=== PATIENT | female | born 1960 | race Caucasian/White ===

== ENCOUNTER 2017-08-09 06:04 | Day surgery (SDC) | payer SELFPAY ==
[2017-08-05 12:40] VITALS: BMI 25.0
[2017-08-09] MEDS ORDERED: GENTAMICIN SO4 80 MG/2 ML VIAL ONE (07:14)
[2017-08-09] MEDS ORDERED: BUPIVACAINE HCL/PF 2.5 MG/ML - 30 ML VIAL IJ ONE (07:14)
[2017-08-09] MEDS ORDERED: LIDOCAINE HCL 1%, 10 MG/ML (20ML VIAL) ONE (07:14)
[2017-08-09] MEDS ORDERED: ceFAZolin SODIUM 1 GM VIAL ONE ×3 (07:14→12:59)
[2017-08-09] MEDS ORDERED: LIDOCAINE 1%/EPI 1:100000 (20 ML MULTI DOSE VIAL) ONE (07:15)
[2017-08-09] MEDS ORDERED: EPINEPHrine/PF 1 MG/1 ML (1:1,000) AMPULE ONE (07:15)
[2017-08-09] MEDS ORDERED: MIDAZOLAM HCL 2 MG/2 ML SINGLE DOSE VIAL ONE (07:53)
[2017-08-09] MEDS ORDERED: SCOPOLAMINE HYDROBROMIDE 1 PATCH PATCH.TD72 ONE (08:36)
[2017-08-09] MEDS ORDERED: PROPOFOL 20 ML ONE ×2 (08:43)
[2017-08-09] MEDS ORDERED: HEPARIN NA (PORCINE) 5,000 UNITS/ML 1ML VIAL ONE (08:43)
[2017-08-09] MEDS ORDERED: ROCURONIUM BROMIDE 50 MG/5 ML VIAL ONE (08:43)
[2017-08-09] MEDS ORDERED: SUCCINYLCHOLINE CHLORIDE 200 MG/10 ML VIAL ONE ×2 (08:43)
[2017-08-09] MEDS ORDERED: HEPARIN NA (PORCINE) 5,000 UNITS/ML 1ML VIAL SQ ONE (08:55)
[2017-08-09] MEDS ORDERED: ONDANSETRON 4 MG/2 ML VIAL ONE ×2 (08:56→14:53)
[2017-08-09] MEDS ORDERED: HYDROmorphone HCL/PF 1 MG/ML VIAL (FOR PYXIS CHARGING ONLY) ONE ×2 (09:02→13:59)
[2017-08-09] MEDS ORDERED: LIDOCAINE 1%/EPI 1:100000 (50 ML MULTI DOSE VIAL) INF ONE ×2 (09:24)
[2017-08-09] MEDS ORDERED: DESFLURANE GAS 240 ML BOTTLE IH ONE (13:33)
[2017-08-09] MEDS ORDERED: DEXAMETHASONE SOD PHOSPHATE 4 MG/1 ML VIAL ONE (14:53)
[2017-08-09] MEDS ORDERED: ONDANSETRON 4 MG/2 ML VIAL IVPUSH PRN ×3 (15:11→17:16)
[2017-08-09] MEDS ORDERED: oxyCODONE HCL 5 MG TABLET PO PRN ×5 (15:11→17:28)
[2017-08-09] MEDS ORDERED: LACTATED RINGERS SOLUTION 1,000 ML IV SCH ×3 (15:15→17:30)
[2017-08-09] MEDS ORDERED: BUPIVACAINE HCL/PF 0.25% (2.5MG/ML) 10 ML VIAL IJ ONE ×2 (15:45)
[2017-08-09] MEDS ORDERED: PROMETHAZINE HCL 25 MG/1 ML VIAL IVPUSH PRN (16:21)
[2017-08-09] MEDS ORDERED: ZOLPIDEM TARTRATE 5 MG TABLET PO PRN (17:16)
[2017-08-09] MEDS ORDERED: ACETAMINOPHEN 325 MG TABLET (FP) PO PRN (17:16)
[2017-08-09] MEDS ORDERED: HYDROmorphone HCL CARPU-JECT 2 MG/1 ML DISP.SYRIN IVPB PRN (17:25)
[2017-08-09 17:43] VITALS: TEMP 99.2
[2017-08-09 18:16] VITALS: PULSE 76
[2017-08-09 19:29] VITALS: BP 146/79
[2017-08-09] MEDS ORDERED: CEFAZOLIN 1 GM/D5W 1 GM/50 ML BAG IVPB SCH (21:00)
[2017-08-09] MEDS ORDERED: ENOXAPARIN NA (PORCINE) 40 MG/0.4 ML DISP.SYRIN SQ ONE (22:00)
--- NOTE | 2017-08-14 14:55 | PATH ---
Surgical Pathology Report Patient Name: TISHA AVERY [facility]. Rec. #: [id number] /Age/Gender: 1960 (Age: 56) / F Account: [id number] Location: [facility] Taken: 08/09/2017 Received: 08/09/2017 Reported: 08/14/2017 Physicians: Iwona Gillis M.D. Specimen(s) Received A: LEFT BREAST SKIN AND TISSUE B: RIGHT BREAST SKIN AND TISSUE C: LEFT CHEST LIPOMA D: ABDOMINAL SKIN AND TISSUE Clinical History Cosmetic Final Diagnosis A. SKIN AND BREAST TISSUE, LEFT, EXCISION: SKIN AND FIBROADIPOSE TISSUE WITH NO PATHOLOGIC FINDINGS. B. SKIN AND BREAST TISSUE, RIGHT, EXCISION: SKIN AND FIBROADIPOSE TISSUE WITH NO PATHOLOGIC FINDINGS. C. CHEST, LEFT, LIPOMA, EXCISION: MATURE ADIPOSE TISSUE, CONSISTENT WITH LIPOMA. D. ABDOMINAL SKIN AND TISSUE, EXCISION: SKIN AND ADIPOSE TISSUE, DESCRIBED (GROSS EXAMINATION ONLY). Electronically Signed Ashli Gannon M.D. Gross Description A. Received in formalin labeled "left breast skin and tissue," is a 14 g, 4.5 x 4.0 x 0.8 cm aggregate of multiple moreno, unoriented portions of unremarkable skin with underlying soft tissue. No lesions are identified. Doll Repairer sections are submitted in one cassette. B. Received in formalin labeled "right breast skin and tissue," is a 13 g, 5.3 x 3.5 x 0.4 cm aggregate of multiple moreno, unoriented portions of unremarkable skin with underlying soft tissue. No lesions are identified. Doll Repairer sections are submitted in one cassette. C. Received in formalin labeled "left chest lipoma," is a 9.5 x 7.5 x 2.3 cm aggregate of multiple irregular, unoriented portions of yellow, lobulated adipose tissue. Sectioning reveals homogeneous yellow, smooth fat. No areas of hemorrhage or necrosis are identified. Doll Repairer sections are submitted in 3 cassettes. D. Received in formalin labeled "abdominal skin and tissue," is a 298 g, 17.0 x 12.0 x 2.5 cm aggregate of multiple irregular, unoriented portions of soft tissue and moreno skin. The epidermal surfaces are unremarkable. Sectioning reveals unremarkable yellow, lobulated adipose tissue. No lesions are identified. No sections are submitted, gross only. DL/08/12/2017 saudi08/12/2017
== END 2017-08-09 19:20 | disposition home or self-care (01) ==
LOC: FASU 06:04
PROVIDERS: ATTEND Surgery
PROC: 0J083ZZ Alteration of Abdomen Subcutaneous Tissue and Fascia, Percutaneous Approach (ICD-10-PCS; 2017-08-09)
PROC: 0HRV0JZ Replacement of Bilateral Breast with Synthetic Substitute, Open Approach (ICD-10-PCS; principal; 2017-08-09 09:16)
PROC: 0HRV0JZ Replacement of Bilateral Breast with Synthetic Substitute, Open Approach (ICD-10-PCS; 2017-08-09 09:16)
PROC: 0H0V0JZ Alteration of Bilateral Breast with Synthetic Substitute, Open Approach (ICD-10-PCS; 2017-08-09 09:16)
PROC: 0J080ZZ Alteration of Abdomen Subcutaneous Tissue and Fascia, Open Approach (ICD-10-PCS; 2017-08-09 09:16)
DX: Z41.1 Encounter for cosmetic surgery (principal)
CPT/HCPCS: 88300-TC; 88304-TC; J1644

== ENCOUNTER 2017-11-22 06:28 | Day surgery (SDC) | payer SELFPAY ==
[2017-11-19 15:43] VITALS: BMI 25.0
[~2017-11-22 06:28] MED LIST: LACTATED RINGERS SOLUTION 1,000 ML IV SCH; ONDANSETRON 4 MG/2 ML VIAL IVPUSH PRN
[2017-11-22] MEDS ORDERED: PROPOFOL 20 ML ONE ×4 (07:04)
[2017-11-22] MEDS ORDERED: SUCCINYLCHOLINE CHLORIDE 200 MG/10 ML VIAL ONE (07:06)
[2017-11-22] MEDS ORDERED: ceFAZolin SODIUM 1 GM VIAL ONE ×2 (07:06→10:20)
[2017-11-22] MEDS ORDERED: ROCURONIUM BROMIDE 50 MG/5 ML VIAL ONE (07:07)
[2017-11-22] MEDS ORDERED: DEXAMETHASONE SOD PHOSPHATE 4 MG/1 ML VIAL ONE (07:08)
[2017-11-22] MEDS ORDERED: ONDANSETRON 4 MG/2 ML VIAL ONE ×2 (07:08→08:41)
[2017-11-22] MEDS ORDERED: SEVOFLURANE 250 ML BTL ONE (07:13)
[2017-11-22] MEDS ORDERED: DESFLURANE GAS 240 ML BOTTLE IH ONE (07:13)
[2017-11-22] MEDS ORDERED: fentaNYL CITRATE 250 MCG/5 ML VIAL ONE (07:24)
[2017-11-22] MEDS ORDERED: BUPIVACAINE HCL/PF 0.5% (5MG/ML) 10 ML VIAL ONE (07:28)
[2017-11-22] MEDS ORDERED: LIDOCAINE 1%/EPI 1:100000 (20 ML MULTI DOSE VIAL) ONE ×2 (07:28→07:38)
[2017-11-22] MEDS ORDERED: SCOPOLAMINE HYDROBROMIDE 1 PATCH PATCH.TD72 ONE (07:29)
[2017-11-22] MEDS ORDERED: MIDAZOLAM HCL 2 MG/2 ML SINGLE DOSE VIAL ONE (07:29)
[2017-11-22] MEDS ORDERED: BUPIVACAINE HCL/PF 2.5 MG/ML - 30 ML VIAL IJ ONE (07:37)
[2017-11-22] MEDS ORDERED: EPINEPHrine/PF 1 MG/1 ML (1:1,000) AMPULE ONE (07:38)
[2017-11-22] MEDS ORDERED: LIDOCAINE HCL 1%, 10 MG/ML (20ML VIAL) ONE (07:38)
[2017-11-22] MEDS ORDERED: ACETAMINOPHEN INJECTION 100 ML IVPB ONE (08:19)
[2017-11-22] MEDS ORDERED: BUPIVACAINE HCL/PF 0.25% (2.5MG/ML) 10 ML VIAL IJ ONE ×3 (10:04→10:49)
[2017-11-22] MEDS ORDERED: LIDOCAINE 1%/EPI 1:100000 (50 ML MULTI DOSE VIAL) INF ONE (10:11)
[2017-11-22 13:07] VITALS: BP 135/84; PULSE 57; TEMP 98
--- NOTE | 2017-11-26 18:12 | PATH ---
Surgical Pathology Report Patient Name: TISHA AVERY [facility] [place]. Rec. #: [id number] /Age/Gender: 1960 (Age: 57) / F Account: [id number] Location: [facility] Taken: 11/22/2017 Received: 11/22/2017 Reported: 11/26/2017 Physicians: Iwona Gillis M.D. Specimen(s) Received ABDOMINAL SCAR, SKIN, SUBCUTANEOUS TISSUE Clinical History Cosmetic Final Diagnosis ABDOMEN, SCAR, SKIN AND SUBCUTANEOUS TISSUE, REVISION ABDOMINOPLASTY AND LIPOSUCTION: SKIN WITH SCAR AND UNREMARKABLE ADIPOSE TISSUE. MACROSCOPIC DIAGNOSIS. Electronically Signed Amena Duque M.D. Gross Description Received in formalin labeled "abdominal scar, skin and subcutaneous tissue," is a 50 g, 15.0 x 4.5 x 2.3 cm aggregate of multiple unoriented portions of skin and fibroadipose tissue. Sectioning reveals unremarkable soft tissue. The epidermal surface displays a well-healed scar. No sections are submitted, gross only. /11/22/2017 saudi/11/22/2017
== END 2017-11-22 13:10 | disposition home or self-care (01) ==
LOC: FASU 06:28 → MERGE 08:00 → FASU 13:10
PROVIDERS: ATTEND Surgery
PROC: 0HB7XZZ Excision of Abdomen Skin, External Approach (ICD-10-PCS; principal; 2017-11-22 08:50)
DX: Z41.1 Encounter for cosmetic surgery (principal); L98.7 Excessive and redundant skin and subcutaneous tissue
CPT/HCPCS: 88300-TC; 94760; J0131